=== PATIENT | female | born 1960 | race Caucasian/White ===

== ENCOUNTER 2020-04-30 19:02 | Emergency (ER) | payer OTHER ==
[2020-04-30] MEDS ORDERED: methylPREDNISolone Sod Succ/PF 125 MG/2 ML VIAL ONE (19:12)
[2020-04-30] MEDS ORDERED: Famotidine In NaCl 20 mg/50 ml Premix Bag ONE (19:13)
== END 2020-04-30 22:09 | disposition home or self-care (01) ==
LOC: BURERS 19:02
DX: T63.461A Toxic effect of venom of wasps, accidental (unintentional), initial encounter (principal); F17.210 Nicotine dependence, cigarettes, uncomplicated; Z79.899 Other long term (current) drug therapy
CPT/HCPCS: 96365; 96375; J2930